=== PATIENT | female | born 2000 | race Caucasian/White ===

== ENCOUNTER 2020-11-01 08:46 | Emergency (ER) | payer OTHER, SELFPAY ==
[2020-11-01] MEDS ORDERED: Ondansetron PF 4 MG/2 ML Vial ONE (09:00)
[2020-11-01 09:22] LABS: #Monocytes 0.4 10x3/uL (0.0-1.1); #Neutrophils 15.3 10x3/uL (1.5-8.4); %Basophils 0.2 % (0.0-2.0); %Eosinophils 0.1 % (0.0-6.0); %Lymphocytes 11.8 % (18.0-47.0); %Monocytes 2.1 % (0.0-10.0); %Neutrophils 85.4 % (40.0-75.0); Hemoglobin 13.8 g/dL (12.0-15.5); Mean Corpuscular HGB CONC 32.6 g/dL (32.0-36.0); Mean Corpuscular Hemoglobin 27.8 pg (27.0-33.0); Mean Corpuscular Volume 85.1 fl (81.6-98.3); Mean Platelet Volume 10.7 fl (7.4-10.4); Platelet Count 408 10x3/uL (150-450); RBC Distribution Width 13.5 % (11.5-14.5); Red Blood Cell (RBC) Count 4.97 10x6/uL (3.90-5.03); White Blood Cell (WBC) Count 17.9 10x3/uL (3.5-10.5)
[2020-11-01 09:39] LABS: ALT (SGPT) 16 U/L (8-55); AST (SGOT) 17 U/L (5-34); Albumin 4.9 g/dL (3.5-5.0); Alkaline Phosphatase 103 U/L (40-100); Anion Gap 20 mmol/L (10-20); BUN (Urea Nitrogen) 8 mg/dL (7.0-18.7); Bilirubin, Total 0.5 mg/dL (0.2-1.2); Calc. Creatinine Clearance 0 mL/min (70-130); Calcium 9.9 mg/dL (7.8-10.44); Carbon Dioxide 18 mmol/L (22-29); Chloride 107 mmol/L (98-107); Globulin 2.7 g/dL (2.4-3.5); Glucose 168 mg/dL (70-105); Potassium 3.9 mmol/L (3.5-5.1); Protein, Total 7.6 g/dL (6.0-8.3); Sodium 141 mmol/L (136-145)
[2020-11-01] MEDS ORDERED: hydrOXYzine 25 MG TAB ONE (10:50)
[2020-11-01 11:24] LABS: Bilirubin Neg (Negative); Blood, Urine Negative (Negative); Clarity Clear (Clear); Glucose, Urine (Dipstick) Normal (Negative); Ketone, Urine 150 mg/dL (Negative); Leukocyte Negative (Negative); Nitrite Negative (Negative); Protein, Urine (Dipstick) Negative (Neg-Trace); Urobilinogen Normal mg/dL (Less than 2)
[2020-11-01 11:32] LABS: Amphetamine Not Detected (NotDetected); Barbiturates Screen Not Detected (NotDetected); Benzodiazepine Screen Not Detected (NotDetected); Cocaine Metabolite Screen Not Detected (NotDetected); Methadone Not Detected (NotDetected); Methamphetamine Not Detected (NotDetected); Opiate Screen Not Detected (NotDetected); Oxycodone Screen Not Detected (NotDetected); Phencyclidine (PCP) Not Detected (NotDetected); THC/Cannabinoid Screen Detected (NotDetected); Tricyclic Screen Not Detected (NotDetected)
[2020-11-01 12:09] LABS: Pregnancy Test - Urine (BHCG) Negative (Negative); Pregu Control Background? CLEAR/WHITE (CLR/WHITE); Pregu Control Bar Appear? YES (CONTROL BAR)
== END 2020-11-01 12:26 | disposition home or self-care (01) ==
LOC: EDBD 08:46 → CSHERS 08:46
DX: R00.2 Palpitations (principal); R11.2 Nausea with vomiting, unspecified; R73.9 Hyperglycemia, unspecified; D72.829 Elevated white blood cell count, unspecified; F12.90 Cannabis use, unspecified, uncomplicated
CPT/HCPCS: 71045; 80053; 80306; 81003; 81025; 84484; 85025; 93005; 96374; J2405

== ENCOUNTER 2020-11-02 17:31 | Emergency (ER) | payer OTHER ==
[2020-11-02] MEDS ORDERED: Haloperidol Lactate 5 MG/ML VIAL ONE (19:20)
== END 2020-11-02 20:42 | disposition home or self-care (01) ==
LOC: CSHERS 17:31
DX: F12.988 Cannabis use, unspecified with other cannabis-induced disorder (principal); R11.2 Nausea with vomiting, unspecified
CPT/HCPCS: 96372; 99283; J1630

== ENCOUNTER 2020-11-05 02:16 | Emergency (ER) | payer OTHER ==
[2020-11-05] MEDS ORDERED: Haloperidol Lactate 5 MG/ML VIAL ONE (02:41)
[2020-11-05 02:58] LABS: #Basophils 0.1 10x3/uL (0.0-0.2); #Eosinphils 0.1 10x3/uL (0.0-0.5); #Monocytes 1.2 10x3/uL (0.0-1.1); #Neutrophils 11.4 10x3/uL (1.5-8.4); %Basophils 0.4 % (0.0-2.0); %Eosinophils 0.6 % (0.0-6.0); %Lymphocytes 27.2 % (18.0-47.0); %Monocytes 6.6 % (0.0-10.0); %Neutrophils 64.4 % (40.0-75.0); Hemoglobin 14.2 g/dL (12.0-15.5); Mean Corpuscular HGB CONC 34.4 g/dL (32.0-36.0); Mean Corpuscular Hemoglobin 28.2 pg (27.0-33.0); Mean Corpuscular Volume 82.1 fl (81.6-98.3); Mean Platelet Volume 10.2 fl (7.4-10.4); Platelet Count 371 10x3/uL (150-450); RBC Distribution Width 14.2 % (11.5-14.5); Red Blood Cell (RBC) Count 5.03 10x6/uL (3.90-5.03); White Blood Cell (WBC) Count 17.6 10x3/uL (3.5-10.5)
[2020-11-05 03:03] LABS: BHCG - Serum Negative (NEGATIVE); Pregs Control Background? CLEAR/WHITE (CLR/WHITE); Pregs Control Bar Appear? YES (CONTROL BAR)
[2020-11-05 03:09] LABS: ALT (SGPT) 15 U/L (8-55); AST (SGOT) 15 U/L (5-34); Albumin 4.9 g/dL (3.5-5.0); Alkaline Phosphatase 91 U/L (40-100); Anion Gap 19 mmol/L (10-20); BUN (Urea Nitrogen) 9 mg/dL (7.0-18.7); Bilirubin, Total 0.7 mg/dL (0.2-1.2); Calc. Creatinine Clearance 0 mL/min (70-130); Calcium 9.7 mg/dL (7.8-10.44); Carbon Dioxide 17 mmol/L (22-29); Chloride 104 mmol/L (98-107); Globulin 2.8 g/dL (2.4-3.5); Glucose 90 mg/dL (70-105); Lipase 21 U/L (8-78); Potassium 3.1 mmol/L (3.5-5.1); Protein, Total 7.7 g/dL (6.0-8.3); Sodium 137 mmol/L (136-145)
== END 2020-11-05 03:51 | disposition home or self-care (01) ==
LOC: CSHERS 02:16
DX: R11.2 Nausea with vomiting, unspecified (principal)
CPT/HCPCS: 80053; 83690; 84703; 85025; 93005; 96361; 96374; J1630